=== PATIENT | male | born 1970 | race Caucasian/White ===

== ENCOUNTER 2017-04-19 06:25 | Day surgery (SDC) | payer BC ==
[2017-04-18 15:04] VITALS: BMI 38.3
[2017-04-19 06:52] VITALS: TEMP 98.8
[2017-04-19] MEDS ORDERED: LIDOCAINE HCL 1%, 10 MG/ML (20ML VIAL) ONE (07:38)
[2017-04-19] MEDS ORDERED: BUPIVACAINE HCL/PF 0.5% (5MG/ML) 10 ML VIAL ONE (07:38)
[2017-04-19] MEDS ORDERED: ceFAZolin SODIUM 1 GM VIAL ONE (08:02)
[2017-04-19] MEDS ORDERED: ceFAZolin SODIUM 1 GM VIAL IVPB ONE ×2 (08:12→08:15)
[2017-04-19] MEDS ORDERED: BUPIVACAINE HCL/PF 0.5% (5MG/ML) 10 ML VIAL IJ ONE ×3 (08:14→08:25)
[2017-04-19] MEDS ORDERED: LIDOCAINE HCL 1%, 10 MG/ML (20ML VIAL) IJ ONE ×3 (08:14→08:25)
--- NOTE | 2017-04-19 08:51 | OP ---
Operative Note - Note: Operative Date: 04/19/17 Pre-Operative Diagnosis: right CTS Operation: right CTR, tenosynovectomy Post-Operative Diagnosis: Same as Pre-op Surgeon: Devon Raza Anesthesiologist/DRAMATIC TEACHER: Marli Lynne Anesthesia: General, Local Specimens Removed: tenosynovium Estimated Blood Loss (mls): 0 Drains, Volume Out (mls): 0 Blood Volume Replaced (mls): 0 Fluid Volume Replaced (mls): 500 Operative Report Dictated: Yes
--- NOTE | 2017-04-19 09:26 | SPEC ---
DATE OF OPERATION: 04/19/2017 PREOPERATIVE DIAGNOSIS: Right carpal tunnel syndrome. POSTOPERATIVE DIAGNOSIS: Right carpal tunnel syndrome. PROCEDURE: Right carpal tunnel release and tenosynovectomy. SURGEON: Devon Raza MD HEEL COVER SOFTENER: None. ANESTHESIA: MAC with local injection of 15 mL of 0.5% Marcaine, 1% lidocaine mix. MACHINE CELL TUBER: Marli Lynne CRNA DRAINS: None. COMPLICATIONS: None. BLOOD LOSS: None. BLOOD GIVEN: None. FLUID REPLACEMENT: 500 mL. INDICATIONS: This patient is a 46-year-old male with a preoperative diagnosis of severe recurrent right carpal tunnel syndrome. After understanding the potential risks, complications, alternatives, and benefits of surgical versus nonsurgical treatment, the patient elected to undergo this procedure. Specifically, the patient understands that he may not get complete relief of his symptoms, including some continuation of the numbness, especially with gripping activities. DESCRIPTION OF PROCEDURE: The patient was brought to the operating room, peripheral IV placed and intravenous sedation was given. One gram of intravenous Ancef was given. MAC anesthesia was induced. A tourniquet was applied to the right upper arm and the right upper extremity was prepped and draped in sterile fashion. The entire case was done under 3.8 loupe magnification. A marking pen was utilized to cristy out a longitudinal incision in an already existing skin crease. Twenty mL of 0.5% Marcaine mixed with 1% lidocaine was injected in and around the surgical incision. The right upper extremity was elevated, exsanguinated with an Esmarch bandage and the tourniquet inflated to 250 mmHg. A No. 15 scalpel blade was utilized to cut down through the skin. Subcutaneous hemostasis was achieved with the bipolar cautery. Dissection was done through the superficial palmar fascia. Self-retaining retractors were placed into the wound. Under direct visualization, the transverse carpal ligament was transected with a No. 15 scalpel blade, exposing the median nerve and the contents of the carpal tunnel. The distal and proximal extents of the release were completed with a Littler scissor and checked with irrigation and my small finger. They were seen to be complete. Limited dissection was done on the radial side of the median nerve and more extensive dissection was done on the ulnar side of the median nerve. The patients nerve was seen to be quite compressed by epineurium and therefore a limited epineurotomy was performed. A Ragnell retractor was used to gently retract the median nerve in a radial direction. The patient had a lot of tenosynovitis and therefore a tenosynovectomy was performed off all of the flexor tendons. This was passed off the field as tenosynovium, right wrist. The floor of the carpal tunnel was checked. There were no abnormal masses or ganglion cysts. The area was copiously irrigated and washed out and closure begun. Undyed 4-0 Vicryl was used to close the deep dermal layer. Final skin reapproximation was done with horizontal mattress 4-0 nylon sutures. The area was then washed and dried, covered with Xeroform, 4 x 4's, fluffs between the fingers, Webril and a 4-inch plaster roll was utilized to make a volar splint, which was then wrapped with Janay and Coban. The tourniquet was taken down after a total tourniquet time of 11 minutes. There were no complications during the case. The patient tolerated the procedure well and was brought to the ambulatory recovery room in stable condition. Dedrick [id number]
[2017-04-19 11:04] VITALS: BP 132/69; PULSE 63
--- NOTE | 2017-04-24 12:56 | PATH ---
Surgical Pathology Report Patient Name: [facility]. Rec. #: [id number] /Age/Gender: 1970 (Age: 46) / M Account: [id number] Location: [facility] Taken: 04/19/2017 Received: 04/20/2017 Reported: 04/24/2017 Physicians: Devon Raza M.D. Specimen(s) Received RIGHT WRIST TENOSYNOVIUM Clinical History Right carpal tunnel wrist Final Diagnosis SOFT TISSUE, RIGHT WRIST, TENOSYNOVIUM, CARPAL TUNNEL RELEASE: BENIGN TENOSYNOVIAL FIBROCONNECTIVE TISSUE WITH MYXOID DEGENERATION. Electronically Signed Jose Miguel Albright M.D. Gross Description Received in formalin labeled "right wrist tenosynovium" is a 2.0 x 1.7 x 0.3 cm aggregate of sin-yellow soft tissue fragments, consistent with tenosynovium. The specimen is submitted in toto in one cassette. 04/20/201704/20/2017
== END 2017-04-19 10:00 | disposition home or self-care (01) ==
LOC: JASU-SURG 06:25
PROVIDERS: ATTEND Orthopaedic Surgery
PROC: 0LB50ZZ Excision of Right Lower Arm and Wrist Tendon, Open Approach (ICD-10-PCS; 2017-04-19)
PROC: 01N50ZZ Release Median Nerve, Open Approach (ICD-10-PCS; principal; 2017-04-19 08:00)
DX: G56.01 Carpal tunnel syndrome, right upper limb (principal); M65.831 Other synovitis and tenosynovitis, right forearm
CPT/HCPCS: 88304-TC

== ENCOUNTER 2021-11-21 21:31 | Inpatient (IN) | payer BC ==
[2021-11-21] MEDS ORDERED: morphine CARPU-JECT 4 MG/1 ML DISP.SYRIN IVPUSH ONE (22:23)
[2021-11-21] MEDS ORDERED: ACETAMINOPHEN 1000 MG/100 ML BAG IVPB ONE (22:23)
[2021-11-21] MEDS ORDERED: ONDANSETRON 4 MG/2 ML VIAL IVPUSH ONE (22:31)
[2021-11-21] MEDS ORDERED: HYDROmorphone HCL CARPU-JECT 2 MG/1 ML DISP.SYRIN IVPUSH ONE (22:31)
[2021-11-21] MEDS ORDERED: LACTATED RINGERS SOLUTION 1000 ML INFUS.BAG IV ONE (22:32)
[2021-11-21] MEDS ORDERED: ONDANSETRON 4 MG/2 ML VIAL ONE (22:33)
[2021-11-21] MEDS ORDERED: HYDROmorphone HCl 2 MG/ML VIAL ONE (22:33)
[2021-11-21] MEDS ORDERED: ACETAMINOPHEN INJECTION 100 ML IVPB ONE (22:33)
[2021-11-21 23:06] LABS: BASO % 0.4 % (0-2.0); EOS % 0.5 % (0-4.5); HEMATOCRIT 46.8 % (35.4-49); HEMOGLOBIN 15.8 GM/dL (11.7-16.9); LYMPH % 17.1 % (8-40); MCH 28.5 pg (25.7-33.7); MCHC 33.7 g/dl (32.0-35.9); MEAN CELL VOLUME 84.6 fl (80-96); MEAN PLT VOLUME 8.2 fl (7.5-11.1); MONO % 5.4 % (3.8-10.2); NEUT % 76.6 % (42.8-82.8); PLATELET COUNT 226 10^3/uL (134-434); RBC 5.54 M/mm3 (4.00-5.60); RDW 13.8 % (11.9-15.9); WHITE BLOOD COUNT 11.5 K/mm3 (4.0-10.0)
[2021-11-21 23:22] LABS: INR 1.08 (0.83-1.09); PROTHROMBIN TIME (PATIENT) 12.4 SEC (9.7-13.0)
[2021-11-21 23:24] LABS: ACTIVATED PTT 27.7 SECONDS (25.2-36.5)
[2021-11-21 23:28] LABS: ALBUMIN 4.1 g/dl (3.4-5.0)
[2021-11-21 23:30] LABS: CREATININE 0.9 mg/dL (0.55-1.3)
[2021-11-21 23:32] LABS: BILIRUBIN,TOTAL 1.1 mg/dL (0.2-1); BLOOD UREA NITROGEN 13.8 mg/dL (7-18); TOT PROT 7.6 g/dl (6.4-8.2)
[2021-11-22] MEDS ORDERED: ONDANSETRON 4 MG/2 ML VIAL IVPUSH PRN ×4 (01:38→14:50)
[2021-11-22] MEDS: LACTATED RINGERS SOLUTION 1,000 ML/1,000 ML INFUS.BAG IV SCH ×2 (01:47→06:45)
[2021-11-22] MEDS ORDERED: morphine CARPU-JECT 2 MG/1 ML DISP.SYRIN IVPUSH PRN (01:49)
[2021-11-22] MEDS ORDERED: LORazepam 2 MG/ML SDV VIAL IVPUSH PRN ×2 (02:11→14:36)
[2021-11-22] MEDS ORDERED: morphine CARPU-JECT 2 MG/1 ML DISP.SYRIN IVPUSH ONE (03:20)
[2021-11-22] MEDS ORDERED: ACETAMINOPHEN INJECTION 100 ML IVPB ONE (03:28)
[2021-11-22] MEDS: ACETAMINOPHEN 1000 MG/100 ML BAG IVPB PRN ×2 (03:37→08:09)
[2021-11-22] MEDS ORDERED: HYDROmorphone HCl 2 MG/ML VIAL IVPUSH PRN (03:40)
[2021-11-22 04:23] LABS: URINE APPEARANCE CLEAR; URINE BILIRUBIN NEGATIVE (NEGATIVE); URINE COLOR YELLOW; URINE GLUCOSE (UA) NEGATIVE (NEGATIVE); URINE KETONE NEGATIVE (NEGATIVE); URINE LEUK ESTERASE NEGATIVE (NEGATIVE); URINE NITRITE NEGATIVE (NEGATIVE); URINE PROTEIN NEGATIVE (NEGATIVE); URINE UROBILINOGEN 0.2 mg/dL (0.2-1.0)
[2021-11-22] MEDS ORDERED: PIPERACILLIN/TAZOB 4.5 GM 4.5 GM in DEXTROSE 5%-WATER 100 ML IVPB ONE (08:52)
[2021-11-22 08:54] LABS: BASO % 0.3 % (0-2.0); HEMATOCRIT 43.8 % (35.4-49); HEMOGLOBIN 14.8 GM/dL (11.7-16.9); LYMPH % 15.8 % (8-40); MCH 28.5 pg (25.7-33.7); MCHC 33.8 g/dl (32.0-35.9); MEAN CELL VOLUME 84.3 fl (80-96); MEAN PLT VOLUME 8.5 fl (7.5-11.1); MONO % 6.2 % (3.8-10.2); NEUT % 77.7 % (42.8-82.8); PLATELET COUNT 218 10^3/uL (134-434); WHITE BLOOD COUNT 9.9 K/mm3 (4.0-10.0)
[2021-11-22] MEDS ORDERED: DEXTROSE 5%-WATER 100 ML IVPB ONE ×2 (09:04→19:48)
[2021-11-22] MEDS ORDERED: PIPERACILLIN/TAZOBACTAM 4.5 GM VIAL IVPB ONE ×3 (09:04→19:48)
[2021-11-22 09:05] LABS: INR 1.18 (0.83-1.09); PROTHROMBIN TIME (PATIENT) 13.6 SEC (9.7-13.0)
[2021-11-22 09:29] LABS: CALCIUM 8.8 mg/dL (8.5-10.1)
[2021-11-22 09:30] LABS: ALBUMIN 3.8 g/dl (3.4-5.0); BLOOD UREA NITROGEN 9.7 mg/dL (7-18); MAGNESIUM 1.9 mg/dL (1.8-2.4)
[2021-11-22 09:31] LABS: PHOSPHOROUS 3.7 mg/dL (2.5-4.9)
[2021-11-22 09:32] LABS: BILIRUBIN,TOTAL 1.1 mg/dL (0.2-1); CREATININE 0.9 mg/dL (0.55-1.3); TOT PROT 6.8 g/dl (6.4-8.2)
[2021-11-22] MEDS ORDERED: SUCCINYLCHOLINE CHLORIDE 200 MG/10 ML SYRINGE ONE ×2 (10:27→13:19)
[2021-11-22] MEDS ORDERED: MIDAZOLAM HCL 2 MG/2 ML SINGLE DOSE VIAL ONE (10:30)
[2021-11-22] MEDS ORDERED: ALBUMIN HUMAN 5% 250 ML IV SOLUTION IV ONE (10:45)
[2021-11-22] MEDS ORDERED: BUPIVACAINE HCL/PF 0.5% (5MG/ML) 10 ML VIAL NR ONE ×2 (11:05)
[2021-11-22] MEDS ORDERED: LIDOCAINE HCL 1%, 10 MG/ML (20ML VIAL) NR ONE ×2 (11:36)
[2021-11-22] MEDS ORDERED: NEOSTIGMINE METHYLSULFATE 0.5 MG/ML - 10 ML MDV ONE (12:48)
[2021-11-22] MEDS ORDERED: GLYCOPYRROLATE 0.2 MG/1 ML VIAL ONE (13:05)
[2021-11-22] MEDS ORDERED: PROPOFOL 20 ML ONE (13:21)
[2021-11-22] MEDS ORDERED: LACTATED RINGERS SOLUTION 1,000 ML/1,000 ML INFUS.BAG IV SCH ×2 (14:36→14:50)
[2021-11-22] MEDS ORDERED: morphine SULFATE 4 MG/ML VIAL IVPUSH PRN ×2 (14:39→14:50)
[2021-11-22] MEDS ORDERED: DEXMEDETOMIDINE IN 0.9 % NACL 400 MCG/100 ML VIAL IVPB SCH (14:45)
[2021-11-22 15:59] LABS: CALCIUM 8.3 mg/dL (8.5-10.1)
[2021-11-22 16:00] LABS: BASO % 0.3 % (0-2.0); BLOOD UREA NITROGEN 10.1 mg/dL (7-18); HEMOGLOBIN 14.5 GM/dL (11.7-16.9); LYMPH % 12.1 % (8-40); MCH 28.8 pg (25.7-33.7); MCHC 33.7 g/dl (32.0-35.9); MEAN CELL VOLUME 85.2 fl (80-96); MEAN PLT VOLUME 8.4 fl (7.5-11.1); MONO % 6.7 % (3.8-10.2); NEUT % 80.9 % (42.8-82.8); PLATELET COUNT 181 10^3/uL (134-434); RBC 5.05 M/mm3 (4.00-5.60); RDW 13.9 % (11.9-15.9); WHITE BLOOD COUNT 11.6 K/mm3 (4.0-10.0)
[2021-11-22 16:03] LABS: CREATININE 1.1 mg/dL (0.55-1.3)
[2021-11-22] MEDS ORDERED: PIPERACILLIN/TAZOB 4.5 GM 4.5 GM in DEXTROSE 5%-WATER 100 ML IVPB SCH (19:00)
[2021-11-22] MEDS: PIPERACILLIN/TAZOB 4.5 GM 4.5 GM in DEXTROSE 5%-WATER 100 ML IVPB SCH (19:54)
[2021-11-22] MEDS: LORazepam 2 MG/ML SDV VIAL IVPUSH PRN (19:55)
[2021-11-22] MEDS: ACETAMINOPHEN 1000 MG/100 ML BAG IVPB SCH (19:58)
[2021-11-22] MEDS ORDERED: ACETAMINOPHEN 1000 MG/100 ML BAG IVPB SCH (20:30)
[2021-11-22] MEDS: HEPARIN NA (PORCINE) 5,000 UNITS/ML 1ML VIAL SQ SCH (21:29)
[2021-11-22] MEDS: MUPIROCIN 2% TOPICAL OINTMENT FOR DECOLONIZATION NS SCH (21:29)
[2021-11-22] MEDS ORDERED: HEPARIN NA (PORCINE) 5,000 UNITS/ML 1ML VIAL SQ SCH (22:00)
[2021-11-22] MEDS ORDERED: CHLORHEXIDINE GLUCONATE 4% CLEANSER FOR DECOLONIZATION TP SCH ×3 (22:00)
[2021-11-22] MEDS ORDERED: MUPIROCIN 2% TOPICAL OINTMENT FOR DECOLONIZATION NS SCH ×2 (22:00)
[2021-11-23] MEDS ORDERED: PIPERACILLIN/TAZOBACTAM 4.5 GM VIAL IVPB ONE ×3 (02:26→17:23)
[2021-11-23] MEDS ORDERED: DEXTROSE 5%-WATER 100 ML IVPB ONE ×3 (02:26→17:24)
[2021-11-23] MEDS: PIPERACILLIN/TAZOB 4.5 GM 4.5 GM in DEXTROSE 5%-WATER 100 ML IVPB SCH ×2 (02:29→09:09)
[2021-11-23] MEDS: ACETAMINOPHEN 1000 MG/100 ML BAG IVPB SCH ×2 (02:30→09:11)
[2021-11-23] MEDS: LORazepam 2 MG/ML SDV VIAL IVPUSH PRN (06:10)
[2021-11-23 07:21] LABS: BASO % 0.3 % (0-2.0); EOS % 0.1 % (0-4.5); HEMATOCRIT 41.4 % (35.4-49); HEMOGLOBIN 14.4 GM/dL (11.7-16.9); LYMPH % 11.8 % (8-40); MCH 29.3 pg (25.7-33.7); MCHC 34.7 g/dl (32.0-35.9); MEAN CELL VOLUME 84.4 fl (80-96); MEAN PLT VOLUME 8.7 fl (7.5-11.1); MONO % 5.9 % (3.8-10.2); NEUT % 81.9 % (42.8-82.8); PLATELET COUNT 170 10^3/uL (134-434); RDW 13.6 % (11.9-15.9); WHITE BLOOD COUNT 10.9 K/mm3 (4.0-10.0)
[2021-11-23 07:33] LABS: BLOOD UREA NITROGEN 16.6 mg/dL (7-18); CALCIUM 8.1 mg/dL (8.5-10.1); MAGNESIUM 1.8 mg/dL (1.8-2.4)
[2021-11-23 07:35] LABS: PHOSPHOROUS 3.2 mg/dL (2.5-4.9)
[2021-11-23 07:37] LABS: BILIRUBIN,TOTAL 2.8 mg/dL (0.2-1); TOT PROT 5.7 g/dl (6.4-8.2)
[2021-11-23] MEDS: HEPARIN NA (PORCINE) 5,000 UNITS/ML 1ML VIAL SQ SCH ×2 (09:08→21:40)
[2021-11-23] MEDS: MUPIROCIN 2% TOPICAL OINTMENT FOR DECOLONIZATION NS SCH (09:14)
[2021-11-23] MEDS ORDERED: FUROSEMIDE 40 MG/4 ML INJECTABLE VIAL IVPUSH ONE (11:00)
[2021-11-23] MEDS ORDERED: HEPARIN NA (PORCINE) 5,000 UNITS/ML 1ML VIAL SQ SCH (14:00)
[2021-11-23] MEDS ORDERED: ONDANSETRON 4 MG/2 ML VIAL IVPUSH PRN (15:46)
[2021-11-23] MEDS ORDERED: LORazepam 2 MG/ML SDV VIAL IVPUSH PRN (15:46)
[2021-11-23] MEDS ORDERED: morphine SULFATE 4 MG/ML VIAL IVPUSH PRN (15:46)
[2021-11-23 16:26] VITALS: BMI 38.8
[2021-11-23] MEDS ORDERED: PIPERACILLIN/TAZOB 4.5 GM 4.5 GM in DEXTROSE 5%-WATER 100 ML IVPB SCH (18:00)
[2021-11-23] MEDS ORDERED: MUPIROCIN 2% TOPICAL OINTMENT FOR DECOLONIZATION NS SCH (22:00)
[2021-11-24] MEDS: HEPARIN NA (PORCINE) 5,000 UNITS/ML 1ML VIAL SQ SCH ×3 (05:48→21:23)
[2021-11-24 09:01] LABS: BASO % 0.4 % (0-2.0); EOS % 0.2 % (0-4.5); HEMOGLOBIN 14.1 GM/dL (11.7-16.9); MCH 28.5 pg (25.7-33.7); MCHC 33.5 g/dl (32.0-35.9); MEAN CELL VOLUME 85.1 fl (80-96); MEAN PLT VOLUME 8.6 fl (7.5-11.1); NEUT % 79.4 % (42.8-82.8); PLATELET COUNT 185 10^3/uL (134-434); RBC 4.93 M/mm3 (4.00-5.60); RDW 13.8 % (11.9-15.9)
[2021-11-24 09:24] LABS: BLOOD UREA NITROGEN 20.3 mg/dL (7-18); MAGNESIUM 2.3 mg/dL (1.8-2.4)
[2021-11-24 09:26] LABS: ALBUMIN 3.6 g/dl (3.4-5.0)
[2021-11-24 09:27] LABS: PHOSPHOROUS 2.2 mg/dL (2.5-4.9)
[2021-11-24 09:29] LABS: BILIRUBIN,TOTAL 2.6 mg/dL (0.2-1); CREATININE 0.9 mg/dL (0.55-1.3)
[2021-11-24 09:30] LABS: TOT PROT 6.6 g/dl (6.4-8.2)
[2021-11-24 09:39] LABS: CALCIUM 9.5 mg/dL (8.5-10.1)
[2021-11-24] MEDS ORDERED: LACTATED RINGERS SOLUTION 1,000 ML/1,000 ML INFUS.BAG IV SCH (10:30)
[2021-11-24] MEDS ORDERED: NAPH,MB-DB/K PH,MBDB POWDER PACKET PO ONE (12:30)
[2021-11-24] MEDS: LOSARTAN POTASSIUM 50 MG TABLET PO SCH (13:03)
[2021-11-25] MEDS: HEPARIN NA (PORCINE) 5,000 UNITS/ML 1ML VIAL SQ SCH ×3 (06:10→22:37)
[2021-11-25 09:11] LABS: BASO % 0.2 % (0-2.0); EOS % 0.4 % (0-4.5); HEMATOCRIT 39.1 % (35.4-49); HEMOGLOBIN 13.4 GM/dL (11.7-16.9); MCH 29.1 pg (25.7-33.7); MCHC 34.3 g/dl (32.0-35.9); MEAN CELL VOLUME 84.7 fl (80-96); MEAN PLT VOLUME 8.4 fl (7.5-11.1); MONO % 5.8 % (3.8-10.2); NEUT % 79.6 % (42.8-82.8); PLATELET COUNT 183 10^3/uL (134-434); RBC 4.62 M/mm3 (4.00-5.60); RDW 13.7 % (11.9-15.9); WHITE BLOOD COUNT 9.4 K/mm3 (4.0-10.0)
[2021-11-25] MEDS: LOSARTAN POTASSIUM 50 MG TABLET PO SCH (09:15)
[2021-11-25 09:47] LABS: CALCIUM 8.4 mg/dL (8.5-10.1)
[2021-11-25 09:48] LABS: BLOOD UREA NITROGEN 15.4 mg/dL (7-18)
[2021-11-25 09:50] LABS: MAGNESIUM 2.1 mg/dL (1.8-2.4)
[2021-11-25 09:52] LABS: BILIRUBIN,TOTAL 2.3 mg/dL (0.2-1); CREATININE 0.8 mg/dL (0.55-1.3); PHOSPHOROUS 2.9 mg/dL (2.5-4.9); TOT PROT 5.9 g/dl (6.4-8.2)
[2021-11-26] MEDS: HEPARIN NA (PORCINE) 5,000 UNITS/ML 1ML VIAL SQ SCH (06:02)
[2021-11-26 08:58] VITALS: BP 151/95; PULSE 84; TEMP 98.7
[2021-11-26] MEDS: LOSARTAN POTASSIUM 50 MG TABLET PO SCH (10:36)
== END 2021-11-26 13:02 | disposition home or self-care (01) | DRG 329 ==
LOC: JER 21:31 → JERBED 11-22 00:40 → J6S 11-22 04:32 → JICU 11-22 15:49 → J6S 11-23 15:38
PROVIDERS: ADMIT Hospitalist; ATTEND Internal Medicine
PROC: 0DT80ZZ Resection of Small Intestine, Open Approach (ICD-10-PCS; 2021-11-22)
PROC: 0WQF0ZZ Repair Abdominal Wall, Open Approach (ICD-10-PCS; principal; 2021-11-22 11:00)
DX: K42.0 Umbilical hernia with obstruction, without gangrene (principal); J95.821 Acute postprocedural respiratory failure; J96.01 Acute respiratory failure with hypoxia; I10 Essential (primary) hypertension; Y83.9 Surgical procedure, unspecified as the cause of abnormal reaction of the patient, or of later complication, without mention of misadventure at the time of the procedure; F41.9 Anxiety disorder, unspecified; E66.9 Obesity, unspecified; Z68.38 Body mass index [BMI] 38.0-38.9, adult; G47.30 Sleep apnea, unspecified
CPT/HCPCS: 36415; 71045-TC-FY; 74177-TC; 80048; 80053; 81003; 82962; 83605; 83690; 83735; 84100; 85025; 85610; 85730; 86850; 86900; 86901; 87086; 88302-TC; 88307-TC; 93005; 93010; 94010; 94660; 94760; 94761; 97116-GP; 97161-GP; 99285-25; C9803-CS; J1644; Q9967; U0003; U0005